=== PATIENT | female | born 1980 | race Caucasian/White ===

== ENCOUNTER → 2016-05-22 | Outpatient (CLI) | payer OTHER ==
--- NOTE | 2016-05-23 08:04 | US ---
EXAMINATION TYPE: US transvaginal DATE OF EXAM: 05/22/2016 6:02 PM COMPARISON: NONE CLINICAL HISTORY: pelvic pain TECHNIQUE: Transvaginal (TV) Date of LMP: 05/09/16 EXAM MEASUREMENTS: Uterus: 7.6 x 4.7 x 6.6cm Endometrial Stripe: 0.9cm Right Ovary: 3.3 x 2.2 x 1.5cm Left Ovary: 3.2 x FINDINGS: TECHNOLOGIST IMPRESSION: 1. Uterus: Anteverted 2. Endometrium: wnl 3. Right Ovary: wnl 4. Left Ovary: wnl 5. Bilateral Adnexa: wnl 6. Posterior cul-de-sac: wnl IMPRESSION: Normal pelvic ultrasound. Normal Values: Uterine Length: < 10cm Endometrium: Proliferative (Day 6 ? 14): 4 ? 6mm Secretory (Day 15 ? 28): 7 ? 14mm Post Menopausal (and not symptomatic): up to 8mm Post Menopausal (with vaginal bleeding): upper limits <5mm Post Menopausal with HRT: upper limits 8 - 15mm Post Menopausal with tamoxifen: < 6mm (although 50% of those receiving tamoxifen have been reported t o have thickness >8mm)
== END | disposition home or self-care (01) ==
LOC: RADUSMAIN 17:34
PROVIDERS: ATTEND Obstetrics & Gynecology
DX: R10.2 Pelvic and perineal pain (principal)
CPT/HCPCS: 76830

== ENCOUNTER 2020-04-13 05:46 | Emergency (ER) | payer BC, OTHER ==
[2020-04-13 05:52] VITALS: RESP 16; TEMP 97.7
[2020-04-13] MEDS ORDERED: SODIUM CHLORIDE 0.9% 1,000 ML IV STA ×2 (06:04)
[2020-04-13] MEDS ORDERED: ONDANSETRON 4 MG/2 ML VIAL IVP STA (06:05)
[2020-04-13] MEDS ORDERED: methylPREDNISolone SOD SUCCI 125 MG/2 ML VIAL IV STA (06:05)
--- NOTE | 2020-04-13 06:09 | ED ---
Dizziness HPI - General Chief Complaint: Syncope Stated Complaint: Syncope Time Seen by Provider: 04/13/20 05:56 Source: patient, EMS, RN notes reviewed, old records reviewed Mode of arrival: EMS Limitations: no limitations - History of Present Illness Initial Comments: Patient is a 39-year-old female who presents emergency department today for a syncopal versus seizure episode lasted 30 seconds. Patient reports that she has been dealing with neck pain and spasms draining down the left arm and her back and neck. She reports it's worse with any movement of her neck. She saw her primary care doctor and was prescribed Flexeril and Tylenol codeine. She reports she's been taking them for the past 24 hours. She reports that she was awake at 4:00 due to neck pain and decided to walk around outside and smoke and took a Flexeril. Patient was awake with her who then reported she had an episode where she had her eyes roll back in her head had 30 seconds of shaking and fell to the ground. He did call EMS. She denies any seizure history. Patient denies any cardiac history. She does complain of nausea. - Related Data Home Medications Medication Instructions Recorded Confirmed Michael Root Extract 300 mg PO DAILY 04/13/20 04/13/20 Cholecalciferol [Vitamin D3 (25 1,000 unit PO DAILY 04/13/20 04/13/20 Mcg = 1000 Iu)] [place]-3 Fatty Acids [[place]-3] 1,000 mg PO DAILY 04/13/20 04/13/20 Rhodiola 1 cap PO DAILY 04/13/20 04/13/20 Previous Rx's Medication Instructions Recorded Ondansetron Odt [Zofran Odt] 4 mg PO Q12HR PRN #12 tab 04/13/20 dexAMETHasone [Dexamethasone] 0.75 mg PO DAILY #12 tab 04/13/20 Allergies Allergy/AdvReac Type Severity Reaction Status Date / Time latex Allergy Unknown Verified 04/13/20 07:40 Penicillins Allergy Rash/Hives Verified 04/13/20 07:40 Review of Systems ROS Statement: Those systems with pertinent positive or pertinent negative responses have been documented in the HPI. ROS Other: All systems not noted in ROS Statement are negative. Past Medical History Past Medical History: No Reported History History of Any Multi-Drug Resistant Organisms: None Reported Past Surgical History: No Surgical Hx Reported Smoking Status: Current every day smoker Past Alcohol Use History: None Reported Past Drug Use History: None Reported General Exam - General Exam Comments Initial Comments: Alert and oriented 39-year-old female. No distress. Limitations: no limitations General appearance: alert, in no apparent distress Head exam: Present: atraumatic, normocephalic, normal inspection Eye exam: Present: normal appearance, PERRL, EOMI. Absent: scleral icterus, conjunctival injection, periorbital swelling ENT exam: Present: normal exam, mucous membranes moist Neck exam: Present: normal inspection, other (Chest tenderness and stiffness of her neck tender to palpation over the paraspinous cervical muscles). Absent: tenderness, meningismus, lymphadenopathy Respiratory exam: Present: normal lung sounds bilaterally. Absent: respiratory distress, wheezes, rales, rhonchi, stridor Cardiovascular Exam: Present: regular rate, normal rhythm, normal heart sounds. Absent: systolic murmur, diastolic murmur, rubs, gallop, clicks GI/Abdominal exam: Present: soft, normal bowel sounds. Absent: distended, tenderness, guarding, rebound, rigid Extremities exam: Present: normal inspection, full ROM, normal capillary refill. Absent: tenderness, pedal edema, joint swelling, calf tenderness Back exam: Present: normal inspection Neurological exam: Present: alert, oriented X3, CN II-XII intact Psychiatric exam: Present: normal affect, normal mood Skin exam: Present: warm, dry, intact, normal color. Absent: rash Course Vital Signs 04/13/20 04/13/20 05:47 07:18 Temperature 97.7 F Pulse Rate 78 77 Respiratory 16 16 Rate Blood Pressure 127/90 108/65 O2 Sat by Pulse 100 99 Oximetry Medical Decision Making - Medical Decision Making Patient is a 39-year-old female who presents the emergency department today for evaluation with complaints of syncopal versus seizure episode. She reports that she's been having neck pain for the past few days and worse with movement. She reports that she was started on Flexeril and Tylenol with Codeine by her primary care doctor yesterday. Patient had a dose of that at 4:00 this morning and then had a syncopal episode while walking around outside. Patient arrives e mergency department alert and oriented. The complaint is neck discomfort. Denies any chest pain. EKG and lab work was reviewed and unremarkable. Urinalysis will be cultured as it is somewhat contaminated. Patient's CT brain and C-spine reviewed and negative for any acute process. I discussed the Patient needs to follow-up with primary care doctor in regards to seem to be versus seizure-like episode but I have low suspicion for seizures lab values and presentation. Patient was advised to use anti-inflammatory medication for her back pain and continue Tylenol codeine as prescribed. I discussed she needs to have close PCP follow-up today or tomorrow. Discussed return parameters. - Lab Data Result diagrams: 04/13/20 06:22 04/13/20 06:22 Lab Results 04/13/20 04/13/20 04/13/20 Range/Units 06:22 06:22 06:22 WBC 7.3 (3.8-10.6) k/uL RBC 4.13 (3.80-5.40) m/uL Hgb 13.2 (11.4-16.0) gm/dL Hct 38.8 (34.0-46.0) % MCV 94.1 (80.0-100.0) fL MCH 32.0 (25.0-35.0) pg MCHC 34.0 (31.0-37.0) g/dL RDW 13.1 (11.5-15.5) % Plt Count 240 (150-450) k/uL MPV 6.9 Neutrophils % 56 % Lymphocytes % 34 % Monocytes % 5 % Eosinophils % 4 % Basophils % 1 % Neutrophils # 4.1 (1.3-7.7) k/uL Lymphocytes # 2.5 (1.0-4.8) k/uL Monocytes # 0.3 (0-1.0) k/uL Eosinophils # 0.3 (0-0.7) k/uL Basophils # 0.1 (0-0.2) k/uL PT 12.9 H (9.0-12.0) sec INR 1.3 H (<1.2) APTT 21.8 L (22.0-30.0) sec Sodium (137-145) mmol/L Potassium (3.5-5.1) mmol/L Chloride (98-107) mmol/L Carbon Dioxide (22-30) mmol/L Anion Gap mmol/L BUN (7-17) mg/dL Creatinine (0.52-1.04) mg/dL Est GFR (CKD-EPI)AfAm (>60 ml/min/1.73 sqM) Est GFR (CKD-EPI)NonAf (>60 ml/min/1.73 sqM) Glucose (74-99) mg/dL Calcium (8.4-10.2) mg/dL Magnesium (1.6-2.3) mg/dL Total Bilirubin (0.2-1.3) mg/dL AST (14-36) U/L ALT (4-34) U/L Alkaline Phosphatase (38-126) U/L Creatine Kinase (30-135) U/L Troponin I (0.000-0.034) ng/mL Total Protein (6.3-8.2) g/dL Albumin (3.5-5.0) g/dL Urine Color Yellow Urine Appearance Cloudy H (Clear) Urine pH 6.0 (5.0-8.0) Ur Specific [place] 1.035 (1.001-1.035) Urine Protein 1+ H (Negative) Urine Glucose (UA) Negative (Negative) Urine Ketones Negative (Negative) Urine Blood Negative (Negative) Urine Nitrite Negative (Negative) Urine Bilirubin Negative (Negative) Urine Urobilinogen 2.0 (<2.0) mg/dL Ur Leukocyte Esterase Large H (Negative) Urine RBC 1 (0-5) /hpf Urine WBC 42 H (0-5) /hpf Ur Squamous Epith Cells 21 H (0-4) /hpf Urine Bacteria Rare H (None) /hpf Hyaline Casts 6 H (0-2) /lpf Urine Mucus Many H (None) /hpf Urine HCG, Qual (Not Detectd) 04/13/20 04/13/20 04/13/20 Range/Units 06:22 06:22 06:22 WBC (3.8-10.6) k/uL RBC (3.80-5.40) m/uL Hgb (11.4-16.0) gm/dL Hct (34.0-46.0) % MCV (80.0-100.0) fL MCH (25.0-35.0) pg MCHC (31.0-37.0) g/dL RDW (11.5-15.5) % Plt Count (150-450) k/uL MPV Neutrophils % % Lymphocytes % % Monocytes % % Eosinophils % % Basophils % % Neutrophils # (1.3-7.7) k/uL Lymphocytes # (1.0-4.8) k/uL Monocytes # (0-1.0) k/uL Eosinophils # (0-0.7) k/uL Basophils # (0-0.2) k/uL PT (9.0-12.0) sec INR (<1.2) APTT (22.0-30.0) sec Sodium 137 (137-145) mmol/L Potassium 4.5 (3.5-5.1) mmol/L Chloride 109 H (98-107) mmol/L Carbon Dioxide 23 (22-30) mmol/L Anion Gap 5 mmol/L BUN 14 (7-17) mg/dL Creatinine 0.71 (0.52-1.04) mg/dL Est GFR (CKD-EPI)AfAm >90 (>60 ml/min/1.73 sqM) Est GFR (CKD-EPI)NonAf >90 (>60 ml/min/1.73 sqM) Glucose 95 (74-99) mg/dL Calcium 8.6 (8.4-10.2) mg/dL Magnesium 1.9 (1.6-2.3) mg/dL Total Bilirubin 0.5 (0.2-1.3) mg/dL AST 19 (14-36) U/L ALT 11 (4-34) U/L Alkaline Phosphatase 44 (38-126) U/L Creatine Kinase 47 (30-135) U/L Troponin I <0.012 (0.000-0.034) ng/mL Total Protein 6.6 (6.3-8.2) g/dL Albumin 3.7 (3.5-5.0) g/dL Urine Color Urine Appearance (Clear) Urine pH (5.0-8.0) Ur Specific [place] (1.001-1.035) Urine Protein (Negative) Urine Glucose (UA) (Negative) Urine Ketones (Negative) Urine Blood (Negative) Urine Nitrite (Negative) Urine Bilirubin (Negative) Urine Urobilinogen (<2.0) mg/dL Ur Leukocyte Esterase (Negative) Urine RBC (0-5) /hpf Urine WBC (0-5) /hpf Ur Squamous Epith Cells (0-4) /hpf Urine Bacteria (None) /hpf Hyaline Casts (0-2) /lpf Urine Mucus (None) /hpf Urine HCG, Qual Not Detected (Not Detectd) 04/13/20 06:32 EKG shows sinus rhythm normal ECG. Ventricular rate of 75 bpm. VT interval is 156 ms. QRS duration is 88 ms. QT QTc is 42/448 ms. - Radiology Data Radiology results: report reviewed fracture-dislocation evidence cervical spine. No acute intracranial hemorrhage mass effect or midline shift is seen. No acute cardiogram primary process. Disposition Clinical Impression: Syncope and collapse, Neck pain on left side Disposition: HOME SELF-CARE Condition: Good Instructions (If sedation given, give patient instructions): Syncope (ED), Cervical Strain (ED) Additional Instructions: Please use medication as discussed. Please follow up with family doctor within 1-2 days. Use heat and ice over neck and proceed with massage. Use Tylenol 3 and motrin for pain. Please return to the emergency room if your symptoms increase or worsen or for any other concerns. Prescriptions: dexAMETHasone [Dexamethasone] 0.75 mg PO DAILY #12 tab Ondansetron Odt [Zofran Odt] 4 mg PO Q12HR PRN #12 tab PRN Reason: Nausea Is patient prescribed a controlled substance at d/c from ED?: No Referrals: Kegaan Gee DO [Primary Care Provider] - 1-2 days Time of Disposition: 08:03
[2020-04-13 06:37] LABS: Basophils # (A) 0.1 k/uL (0-0.2); Basophils % (A) 1 %; Eosinophils # (A) 0.3 k/uL (0-0.7); Eosinophils % (A) 4 %; HCT 38.8 % (34.0-46.0); HGB 13.2 gm/dL (11.4-16.0); Lymphocytes # (A) 2.5 k/uL (1.0-4.8); Lymphocytes % (A) 34 %; MCV 94.1 fL (80.0-100.0); Mean Platelet Volume 6.9; Monocytes # (A) 0.3 k/uL (0-1.0); Monocytes % (A) 5 %; Neutrophils # (A) 4.1 k/uL (1.3-7.7); Neutrophils % (A) 56 %; Platelet Count 240 k/uL (150-450); RBC 4.13 m/uL (3.80-5.40); RDW 13.1 % (11.5-15.5); WBC 7.3 k/uL (3.8-10.6)
--- NOTE | 2020-04-13 06:42 | CT ---
EXAMINATION TYPE: CT brain aliciaine wo con DATE OF EXAM: 04/13/2020 COMPARISON: NONE HISTORY: Fall injury with headache and neck pain. Syncope. CT DLP: 1351 mGycm. Automated Exposure Control for Dose Reduction was Utilized. TECHNIQUE: CT scan of the head and cervical spine are performed without contrast. FINDINGS: There is no acute intracranial hemorrhage, mass effect, or midline shift identified. The ventricles and sulci are within normal limits in size. Acosta-white matter differentiation is maintain ed. The calvarium is intact. The globes are intact and the visualized sinuses are clear. Cervical spine is visualized in its entirety from C1 through upper thoracic levels and demonstrates l oss of normal cervical curvature without evidence of acute fracture or dislocation. Prevertebral sof t tissue appears within normal limits. The C1-C2 articulation is within normal limits on the coronal images. Vertebral body heights and disc space heights are maintained. Spinal canal is grossly prese rved. Axial images. Within normal limits. Thyroid gland is heterogeneous and slightly enlarged in siz e, correlate for underlying goiter. Lung apices show no pneumothorax. IMPRESSION: 1. There is no acute fracture or dislocation evident in the cervical spine. 2. No acute intracranial hemorrhage, mass effect, or midline shift is seen.
[2020-04-13 06:49] LABS: ALT 11 U/L (4-34); AST 19 U/L (14-36); African American GFR (CKD) >90 (>60 ml/min/1.73 sqM); Albumin 3.7 g/dL (3.5-5.0); Alkaline Phosphatase 44 U/L (38-126); Anion Gap 5 mmol/L; Blood Urea Nitrogen 14 mg/dL (7-17); Calcium 8.6 mg/dL (8.4-10.2); Carbon Dioxide 23 mmol/L (22-30); Chloride 109 mmol/L (98-107); Creatine Kinase 47 U/L (30-135); Glucose 95 mg/dL (74-99); Magnesium 1.9 mg/dL (1.6-2.3); Non-African American GFR(CKD) >90 (>60 ml/min/1.73 sqM); Potassium 4.5 mmol/L (3.5-5.1); Sodium 137 mmol/L (137-145); Total Bilirubin 0.5 mg/dL (0.2-1.3); Total Protein 6.6 g/dL (6.3-8.2)
[2020-04-13 06:54] LABS: Appearance,Urine Cloudy (Clear); Bacteria,Urine Rare /hpf; Bilirubin,Urine Negative (Negative); Blood,Urine Negative (Negative); Color,Urine Yellow; Glucose,Urine (UA) Negative (Negative); Hyaline Casts,Urine 6 /lpf (0-2); Ketones,Urine Negative (Negative); Leukocyte Esterase,Urine Large (Negative); Mucus,Urine Many /hpf; Nitrite,Urine Negative (Negative); Protein,Urine 1+ (Negative); RBC,Urine 1 /hpf (0-5); Specific Gravity,Urine 1.035 (1.001-1.035); Squamous Epithelial Cell,Urine 21 /hpf (0-4); WBC,Urine 42 /hpf (0-5)
--- NOTE | 2020-04-13 06:54 | XR ---
EXAMINATION TYPE: XR chest 2V DATE OF EXAM: 04/13/2020 COMPARISON: NONE HISTORY: Syncope and weakness. TECHNIQUE: Frontal and lateral views of the chest are obtained. FINDINGS: There is no focal air space opacity, pleural effusion, or pneumothorax seen. The cardiac silhouette size is within normal limits. The osseous structures are intact. IMPRESSION: No acute cardiopulmonary process.
[2020-04-13 07:03] LABS: INR 1.3 (<1.2); Prothrombin Time 12.9 sec (9.0-12.0)
[2020-04-13 07:16] LABS: Partial Thromboplastin Time 21.8 sec (22.0-30.0)
[2020-04-13] MEDS ORDERED: MORPHINE SULFATE 2 MG/ML SYRINGE IVP ONE (07:17)
[2020-04-13] MEDS ORDERED: KETOROLAC 15 MG/ML 1 ML VIAL IVP STA (07:17)
[2020-04-13 07:19] VITALS: BP 108/65; PULSE 77
== END 2020-04-13 08:29 | disposition home or self-care (01) ==
LOC: EC 05:46
DX: R55 Syncope and collapse (principal); M54.2 Cervicalgia; F17.200 Nicotine dependence, unspecified, uncomplicated; Z88.0 Allergy status to penicillin; Z91.040 Latex allergy status
CPT/HCPCS: 36415; 70450; 71046; 72125; 80053; 81001; 81025; 82550; 83735; 84484; 85025; 85610; 85730; 93005; 96361; 96374; 96375; 99285